=== PATIENT | male | born 1995 | race Caucasian/White ===

== ENCOUNTER 2017-04-20 02:25 | Emergency (ER) | payer SELFPAY ==
[2017-04-20 08:34] VITALS: BP 120/56
== END 2017-04-20 08:34 | disposition home or self-care (01) ==
LOC: ED 02:25
DX: H60.93 Unspecified otitis externa, bilateral (principal); F10.129 Alcohol abuse with intoxication, unspecified; R51 Headache; I10 Essential (primary) hypertension; E07.9 Disorder of thyroid, unspecified; E11.9 Type 2 diabetes mellitus without complications
CPT/HCPCS: J1885; J2405; J7030

== ENCOUNTER 2020-05-09 22:14 | Emergency (ER) | payer SELFPAY ==
[~2020-05-09] VITALS: Ht 175.3 cm; Wt 133.4 kg
[2020-05-09 22:28] VITALS: Ht 175.3 cm; Wt 133.4 kg
[2020-05-10 00:14] VITALS: BP 124/98
== END 2020-05-10 00:14 | disposition home or self-care (01) ==
LOC: ED 22:14
DX: T23.101A Burn of first degree of right hand, unspecified site, initial encounter (principal); X17.XXXA Contact with hot engines, machinery and tools, initial encounter; Y93.89 Activity, other specified; Y92.89 Other specified places as the place of occurrence of the external cause; Y99.8 Other external cause status

== ENCOUNTER 2020-05-11 17:26 | Emergency (ER) | payer SELFPAY ==
[~2020-05-11] VITALS: Ht 175.3 cm; Wt 79.8 kg
[2020-05-11 17:55] VITALS: BP 102/67
== END 2020-05-11 17:55 | disposition home or self-care (01) ==
LOC: ED 17:26
DX: T23.002D Burn of unspecified degree of left hand, unspecified site, subsequent encounter (principal); X08.8XXD Exposure to other specified smoke, fire and flames, subsequent encounter

== ENCOUNTER 2020-05-17 11:35 | Emergency (ER) | payer SELFPAY ==
[~2020-05-17] VITALS: Ht 175.3 cm; Wt 79.4 kg
[2020-05-17 11:46] VITALS: BP 107/79; Ht 175.3 cm; Wt 79.4 kg
== END 2020-05-17 12:02 | disposition home or self-care (01) ==
LOC: ED 11:35
DX: T23.022D Burn of unspecified degree of single left finger (nail) except thumb, subsequent encounter (principal); Z13.89 Encounter for screening for other disorder